=== PATIENT | female | born 1960 | race Caucasian/White ===

== ENCOUNTER → 2019-10-03 | Outpatient (CLI) | payer BC ==
--- NOTE | 2019-10-03 15:26 | RAD ---
PROCEDURE: RIBS RIGHT AND PA CHEST STUDY DATE: 10/03/2019 CLINICAL INDICATION / HISTORY: Right rib pain. TECHNIQUE: Right ribs views with a PA chest. COMPARISON: None FINDINGS: Heart and mediastinal contours are unremarkable. The agustin are within normal limits. The lungs are hypoventilatory but clear. No pneumothorax or pleural effusion. Bony thorax appears intact. No free air under the diaphragms. The right ribs show no displaced fractures or aggressive osseous lesions. IMPRESSION: Negative right rib series and PA chest. Electronically signed by: Michael Reyes MD (10/03/2019 3:24 PM) [id number]
== END | disposition home or self-care (01) ==
LOC: PMG 13:21
PROVIDERS: ATTEND Registered Nurse
DX: R07.81 Pleurodynia (principal)
CPT/HCPCS: 71101

== ENCOUNTER → 2021-05-14 | Outpatient (CLI) | payer BC ==
--- NOTE | 2021-05-15 13:53 | RAD ---
INDICATION : Routine Screening. COMPARISON: [facility] including June 2018 TECHNIQUE: Standard mammogram screening views of the bilateral breasts were obtained with 3D tomosynt hesis. CAD was utilized. FINDINGS: The breasts are fatty density. No definite suspicious mass. IMPRESSION: BI-RADS Category 2: Benign findings. The patient was placed into the recall system with a suggested recall date for follow up imaging. Mammography is the most sensitive method for finding small breast cancers, but it does not detect the m all and is not a substitute for careful clinical examination. A negative mammogram does not negate a clinically suspicious finding and should not result in delay in biopsying a clinically suspicious abnormality. Electronically signed by: Adolfo Rust MD (05/15/2021 1:50 PM) [id number]
== END ==
LOC: MAMMO 08:15
PROVIDERS: ATTEND Family Medicine
DX: Z12.31 Encounter for screening mammogram for malignant neoplasm of breast (principal)
CPT/HCPCS: 77063; 77067

== ENCOUNTER → 2021-09-30 | Outpatient (CLI) | payer BC ==
--- NOTE | 2021-09-30 10:57 | RAD ---
EXAM: Left ankle, 3 views; left foot, 3 views. HISTORY: Achilles tendinitis. COMPARISON: None. FINDINGS: 3 views of the left foot and ankle are obtained. There is no fracture, dislocation or sublu xation. The ankle mortise is intact. There is no osteochondral lesion. There is a small plantar spur. There is mild enthesopathy at the Achilles tendon insertion. There is a small osseous excrescence al cecilio the lateral base of the first proximal phalanx, likely developmental or the sequela of remote inj ury. There is a bone island within the first distal phalanx. IMPRESSION: 1. Small plantar spur and mild enthesopathy at the Achilles tendon insertion. 2. No acute osseous finding. Electronically signed by: Marie Sanchez MD (09/30/2021 10:54 AM) [id number]
== END ==
LOC: RAD 10:12
PROVIDERS: ATTEND Podiatrist Foot & Ankle Surgery
DX: M77.32 Calcaneal spur, left foot (principal); M76.62 Achilles tendinitis, left leg
CPT/HCPCS: 73610; 73630